=== PATIENT | male | born 1960 | race Two or more races ===

== ENCOUNTER 2017-06-14 12:35 | Emergency (ER) | payer BC, OTHER ==
[2017-06-14 13:00] VITALS: BP 152/87
== END 2017-06-14 13:16 | disposition home or self-care (01) ==
LOC: ER 12:35
DX: G51.0 Bell's palsy (principal)

== ENCOUNTER 2022-01-04 10:07 | Inpatient (IN) | payer BC, MEDICAID, OTHER ==
[~2022-01-04] VITALS: Ht 180.3 cm; Wt 129.8 kg
[2022-01-04 10:45] LABS: Basophils # (auto) 0 10 ^3/uL (0-0.2); Basophils % (auto) 0.5 % (0.0-2.0); Eosinophils # (auto) 0.1 10 ^3/uL (0-0.8); Eosinophils % (auto) 1.5 % (0.0-7.0); Hematocrit 44.1 % (41.0-53.0); Hemoglobin 14.9 g/dL (13.5-17.5); Lymphocytes % (auto) 13.8 % (10.0-50.0); Mean Corpuscular Hemoglobin 29.2 pg (28.0-32.0); Mean Corpuscular Hgb Conc. 33.8 g/dL (32.0-36.0); Mean Corpuscular Volume 86.4 fL (80.0-100.0); Monocytes # (auto) 0.6 10 ^3/uL (0-1.3); Monocytes % (auto) 7.6 % (0.0-12.0); Neutrophils # (auto) 5.6 10 ^3/uL (1.6-8.6); Neutrophils % (auto) 76.6 % (37.0-80.0); Nucleated Red Blood Cells % 0.1 %; Red Blood Cells 5.11 10^6/uL (4.5-5.90); Red Cell Distribution Width 14.4 % (11.8-14.3); White Blood Cell 7.3 10^3/uL (4.4-10.8)
[2022-01-04 12:49] LABS: Alanine Aminotransferase 53 U/L (16-61); Albumin 2.7 g/dL (3.4-5.0); Alkaline Phosphatase 84 U/L (45-117); Anion Gap 4 (5-15); Aspartate Aminotransferase 29 U/L (15-37); BUN/Creatinine Ratio 21.4; Bilirubin, Total 0.4 mg/dL (0.2-1.0); Blood Urea Nitrogen 15 mg/dL (7-18); Calcium 8.6 mg/dL (8.5-10.1); Carbon Dioxide 28 mmol/L (21-32); Chloride 104 mmol/L (98-107); GFR African American 146 mL/min; GFR Non-African American 121 mL/min; Glucose 194 mg/dL (74-106); Potassium 4.1 mmol/L (3.5-5.1); Sodium 136 mmol/L (136-145); Total Protein 6.2 g/dL (6.4-8.2)
[2022-01-04] MEDS ORDERED: IOHEXOL 350 MG/ML 100ML IJ ONE (12:59)
[2022-01-04] MEDS ORDERED: MORPHINE SULFATE INJECTION 2 MG/ML SYRG IV PRN ×2 (13:15→16:45)
[2022-01-04] MEDS ORDERED: NITROGLYCERIN 0.4 MG SL TAB SL PRN (13:15)
[2022-01-04] MEDS ORDERED: HEPARIN SODIUM (PORCINE) 5000 UNITS/ML 1ML VIAL IV ONE (14:00)
[2022-01-04 16:27] LABS: Partial Thromboplastin Time 26.6 sec (23.6-33.0)
[2022-01-04] MEDS ORDERED: ONDANSETRON HCL 4 MG/2 ML VIAL IV PRN (16:45)
[2022-01-04] MEDS ORDERED: LACTULOSE 20Gm/30ML SOLN PO PRN (16:45)
[2022-01-04] MEDS ORDERED: LORazepam 0.5 MG TAB PO PRN (16:45)
[2022-01-04] MEDS ORDERED: DEXTROSE (50%) 50ML SYRG IV PRN (16:45)
[2022-01-04] MEDS ORDERED: HYDROcodone-ACET 5/325MG TAB PO PRN (16:45)
[2022-01-04] MEDS ORDERED: IPRATROPIUM BROM 0.5 MG/2.5ML INH SOL NEB ONE (16:45)
[2022-01-04] MEDS ORDERED: hydrALAZINE HCL 20 MG/ML VL IV PRN (16:45)
[2022-01-04] MEDS ORDERED: HYDROcodone-ACET 5/325MG TAB PO ONE (16:45)
[2022-01-04] MEDS ORDERED: FAMOTIDINE (10MG/ML) 2ML VL IV ONE (16:45)
[2022-01-04] MEDS ORDERED: ACETAMINOPHEN 500 MG TAB PO PRN (16:45)
[2022-01-04] MEDS ORDERED: DOCUSATE SOD 100 MG CAP PO PRN (16:45)
[2022-01-04] MEDS ORDERED: REMDESIVIR PER PHARMACY 0 ML IV SCH (16:45)
[2022-01-04] MEDS ORDERED: IPRATROPIUM BROM 0.5 MG/2.5ML INH SOL NEB PRN (17:00)
[2022-01-04] MEDS ORDERED: ISOSORBIDE MONONITRATE 20 MG TAB PO ONE (17:00)
[2022-01-04] MEDS: HEPARIN DRIP/D5W 100UNITS/ML 250 ML IV SCH (17:01)
[2022-01-04] MEDS: SODIUM CHLORIDE 0.9% 1,000 ML IV SCH (17:17)
[2022-01-04] MEDS: ACCU-CHEK COMFORT CURVE STRIP VI SCH ×2 (17:24→22:13)
[2022-01-04] MEDS: FUROSEMIDE 20 MG/2 ML VIAL IV SCH (17:24)
[2022-01-04] MEDS: InsuLIN REG 1unit/0.01ml Soln (100units/ml) SC SCH ×2 (17:50→22:14)
[2022-01-04] MEDS ORDERED: IPRATROPIUM BROM 0.5 MG/2.5ML INH SOL NEB SCH (18:00)
[2022-01-04 18:30] VITALS: BP 122/64
[2022-01-04 19:08] LABS: Magnesium 2.2 mg/dL (1.6-2.6); Phosphorus 3.4 mg/dL (2.5-4.90)
[2022-01-04] MEDS: ALBUTEROL SULF HFA 90MCG INH 200DOSE IN PRN (19:30)
[2022-01-04] MEDS: BUDESONIDE (INHALATION) 180 MCG IH IN SCH (19:30)
[2022-01-04] MEDS ORDERED: REMDESIVIR 200 MG in NS 210ml LOADING DOSE ADULT IV ONE (20:00)
[2022-01-04 21:10] LABS: INR 1.09 (0.9-1.15); Partial Thromboplastin Time 38.1 sec (23.6-33.0)
[2022-01-04] MEDS: DOXYCYCLINE 100MG/250ML 250 ML IV SCH (22:12)
[2022-01-04] MEDS: ISOSORBIDE MONONITRATE 20 MG TAB PO SCH (22:13)
[2022-01-04] MEDS: POTASSIUM CHL 20 Meq TABLET PO SCH (22:13)
[2022-01-04] MEDS: ATORVASTATIN 20 MG TAB PO SCH (22:13)
[2022-01-04 23:42] LABS: INR 1.05 (0.9-1.15); Partial Thromboplastin Time 45.2 sec (23.6-33.0)
[2022-01-05] VITALS (42 sets, daily range): BP systolic 95–176; BP diastolic 55–84
[2022-01-05] MEDS: HEPARIN DRIP/D5W 100UNITS/ML 250 ML IV SCH ×2 (04:15→16:45)
[2022-01-05] MEDS: ACCU-CHEK COMFORT CURVE STRIP VI SCH ×4 (05:53→21:36)
[2022-01-05] MEDS: FUROSEMIDE 20 MG/2 ML VIAL IV SCH ×2 (05:53→17:22)
[2022-01-05] MEDS: SODIUM CHLORIDE 0.9% 1,000 ML IV SCH (05:54)
[2022-01-05] MEDS: InsuLIN REG 1unit/0.01ml Soln (100units/ml) SC SCH ×4 (05:55→21:39)
[2022-01-05] MEDS: ALBUTEROL SULF HFA 90MCG INH 200DOSE IN PRN ×2 (06:11→22:30)
[2022-01-05] MEDS: BUDESONIDE (INHALATION) 180 MCG IH IN SCH ×2 (06:11→22:30)
[2022-01-05 06:53] LABS: Basophils # (auto) 0 10 ^3/uL (0-0.2); Basophils % (auto) 0.4 % (0.0-2.0); Eosinophils # (auto) 0.1 10 ^3/uL (0-0.8); Hematocrit 38.7 % (41.0-53.0); Hemoglobin 13.1 g/dL (13.5-17.5); Lymphocytes # (auto) 1.2 10 ^3/uL (0.4-5.4); Lymphocytes % (auto) 18.6 % (10.0-50.0); Mean Corpuscular Hemoglobin 29.3 pg (28.0-32.0); Mean Corpuscular Hgb Conc. 33.9 g/dL (32.0-36.0); Mean Corpuscular Volume 86.2 fL (80.0-100.0); Monocytes # (auto) 0.6 10 ^3/uL (0-1.3); Monocytes % (auto) 8.9 % (0.0-12.0); Neutrophils # (auto) 4.5 10 ^3/uL (1.6-8.6); Neutrophils % (auto) 70.1 % (37.0-80.0); Nucleated Red Blood Cells % 0.1 %; Red Blood Cells 4.48 10^6/uL (4.5-5.90); Red Cell Distribution Width 14.2 % (11.8-14.3); White Blood Cell 6.4 10^3/uL (4.4-10.8)
[2022-01-05 06:59] LABS: INR 1.06 (0.9-1.15); Partial Thromboplastin Time 60.4 sec (23.6-33.0)
[2022-01-05 07:00] LABS: Potassium 4.3 mmol/L (3.5-5.1)
[2022-01-05 07:15] LABS: Albumin 2.4 g/dL (3.4-5.0); Calcium 8.6 mg/dL (8.5-10.1); Magnesium 2.4 mg/dL (1.6-2.6)
[2022-01-05 07:22] LABS: Bilirubin, Total 0.4 mg/dL (0.2-1.0); Phosphorus 3.1 mg/dL (2.5-4.90); Total Protein 5.8 g/dL (6.4-8.2)
[2022-01-05 08:02] LABS: Thyroid Stimulating Hormone 2.04 uIU/mL (0.358-3.74)
[2022-01-05] MEDS ORDERED: ENAL10TA12 PO (09:42)
[2022-01-05] MEDS: ASCORBIC ACID 1,000 MG TAB PO SCH (10:00)
[2022-01-05] MEDS: DexAMETHasone SOD PHOS 10MG/1ML VIAL INJ IV SCH (10:00)
[2022-01-05] MEDS: ZINC SULFATE 220mg CAP or TAB PO SCH (10:00)
[2022-01-05] MEDS: ASPirin 81 mg TAB PO SCH (10:00)
[2022-01-05] MEDS: CHOLECALCIFEROL (VITD3) 2,000 UNIT CAP/TAB PO SCH (10:00)
[2022-01-05] MEDS: FAMOTIDINE (10MG/ML) 2ML VL IV SCH (10:00)
[2022-01-05] MEDS: POTASSIUM CHL 20 Meq TABLET PO SCH ×2 (10:00→21:35)
[2022-01-05] MEDS: DOXYCYCLINE 100MG/250ML 250 ML IV SCH ×2 (10:00→21:35)
[2022-01-05] MEDS: ISOSORBIDE MONONITRATE 20 MG TAB PO SCH ×2 (10:00→21:35)
[2022-01-05 14:21] LABS: INR 1.06 (0.9-1.15); Partial Thromboplastin Time 66.6 sec (23.6-33.0)
[2022-01-05] MEDS: REMDESIVIR 100mg 100 MG in SODIUM CHL 0.9% 230 ML IV SCH (15:04)
[2022-01-05] MEDS: ATORVASTATIN 20 MG TAB PO SCH (21:36)
[2022-01-05 22:21] LABS: Albumin 2.4 g/dL (3.4-5.0); BUN/Creatinine Ratio 23.4; Calcium 8.5 mg/dL (8.5-10.1); Potassium 4.8 mmol/L (3.5-5.1)
[2022-01-05 22:23] LABS: Bilirubin, Total 0.4 mg/dL (0.2-1.0); Total Protein 5.8 g/dL (6.4-8.2)
[2022-01-05 22:32] LABS: INR 1.08 (0.9-1.15)
[2022-01-05 22:48] LABS: Partial Thromboplastin Time 74.9 sec (23.6-33.0)
[2022-01-06] VITALS (34 sets, daily range): BP systolic 106–167; BP diastolic 57–89
[2022-01-06] MEDS: SODIUM CHLORIDE 0.9% 1,000 ML IV SCH ×2 (02:00→18:45)
[2022-01-06] MEDS: FUROSEMIDE 20 MG/2 ML VIAL IV SCH ×2 (05:04→17:36)
[2022-01-06] MEDS: HEPARIN DRIP/D5W 100UNITS/ML 250 ML IV SCH ×2 (05:04→09:09)
[2022-01-06 05:39] LABS: Basophils # (auto) 0 10 ^3/uL (0-0.2); Basophils % (auto) 0.4 % (0.0-2.0); Eosinophils # (auto) 0 10 ^3/uL (0-0.8); Hematocrit 39.1 % (41.0-53.0); Hemoglobin 13.4 g/dL (13.5-17.5); Lymphocytes # (auto) 0.7 10 ^3/uL (0.4-5.4); Mean Corpuscular Hemoglobin 29.3 pg (28.0-32.0); Mean Corpuscular Hgb Conc. 34.2 g/dL (32.0-36.0); Mean Corpuscular Volume 85.7 fL (80.0-100.0); Monocytes # (auto) 0.4 10 ^3/uL (0-1.3); Monocytes % (auto) 6.4 % (0.0-12.0); Neutrophils # (auto) 5.5 10 ^3/uL (1.6-8.6); Neutrophils % (auto) 83.2 % (37.0-80.0); Red Blood Cells 4.56 10^6/uL (4.5-5.90); Red Cell Distribution Width 13.9 % (11.8-14.3); White Blood Cell 6.6 10^3/uL (4.4-10.8)
[2022-01-06 06:03] LABS: Albumin 2.4 g/dL (3.4-5.0); BUN/Creatinine Ratio 24.2; Calcium 8.7 mg/dL (8.5-10.1); Potassium 4.4 mmol/L (3.5-5.1)
[2022-01-06 06:06] LABS: Bilirubin, Total 0.4 mg/dL (0.2-1.0)
[2022-01-06] MEDS: InsuLIN REG 1unit/0.01ml Soln (100units/ml) SC SCH ×4 (06:23→22:36)
[2022-01-06] MEDS: ACCU-CHEK COMFORT CURVE STRIP VI SCH ×4 (06:23→22:34)
[2022-01-06] MEDS: ALBUTEROL SULF HFA 90MCG INH 200DOSE IN PRN ×2 (08:24→18:49)
[2022-01-06] MEDS: BUDESONIDE (INHALATION) 180 MCG IH IN SCH ×2 (08:24→18:49)
[2022-01-06] MEDS: DOXYCYCLINE 100MG/250ML 250 ML IV SCH ×2 (09:04→22:33)
[2022-01-06] MEDS: DexAMETHasone SOD PHOS 10MG/1ML VIAL INJ IV SCH (09:05)
[2022-01-06] MEDS: FAMOTIDINE (10MG/ML) 2ML VL IV SCH (09:05)
[2022-01-06] MEDS ORDERED: VANCOMYCIN PER PHARMACY 0 MG IV SCH (09:45)
[2022-01-06] MEDS: ISOSORBIDE MONONITRATE 20 MG TAB PO SCH ×2 (10:00→22:33)
[2022-01-06] MEDS: ASCORBIC ACID 1,000 MG TAB PO SCH (10:00)
[2022-01-06] MEDS: CHOLECALCIFEROL (VITD3) 2,000 UNIT CAP/TAB PO SCH (10:00)
[2022-01-06] MEDS: POTASSIUM CHL 20 Meq TABLET PO SCH ×2 (10:00→22:00)
[2022-01-06] MEDS: ZINC SULFATE 220mg CAP or TAB PO SCH (10:00)
[2022-01-06] MEDS: ASPirin 81 mg TAB PO SCH (10:00)
[2022-01-06] MEDS ORDERED: VANCOMYCIN 1GM/250ML 250 ML IV ONE (10:30)
[2022-01-06] MEDS: hydrALAZINE HCL 20 MG/ML VL IV PRN (11:21)
[2022-01-06] MEDS ORDERED: fentaNYL CITRATE 100 MCG/2 ML VL ONE (11:54)
[2022-01-06] MEDS ORDERED: MIDAZOLAM HCL 2MG/2ML 2ml VIAL (1mg/ml) ONE (11:54)
[2022-01-06] MEDS ORDERED: LIDOCAINE 2%HCL (LOCAL ANESTH.) INJ 20ML MDV ONE (12:23)
[2022-01-06] MEDS ORDERED: ANGIOMAX 250 MG VIAL IV ONE ×2 (12:56→13:20)
[2022-01-06] MEDS ORDERED: SODIUM CHL 0.9% 50 ML ONE (12:56)
[2022-01-06] MEDS ORDERED: SODIUM CHL 0.9% 100 ML ONE (13:20)
[2022-01-06] MEDS ORDERED: IODIXANOL 320MG/ML 100ML BTL IV ONE ×2 (13:41→14:33)
[2022-01-06] MEDS ORDERED: IOHEXOL 350 MG/ML 100ML IJ ONE (15:11)
[2022-01-06] MEDS: REMDESIVIR 100mg 100 MG in SODIUM CHL 0.9% 230 ML IV SCH (16:50)
[2022-01-06] MEDS ORDERED: AMIODARONE HCL 150 MG in D5W 5% 100 ML IV ONE (17:00)
[2022-01-06] MEDS ORDERED: AMIODARONE 450mg/250ml AE 250 ML IV SCH (17:15)
[2022-01-06] MEDS: VANCOMYCIN 1GM/250ML 250 ML IV SCH (17:29)
[2022-01-06 21:30] LABS: INR 1.24 (0.9-1.15); Partial Thromboplastin Time 56.8 sec (23.6-33.0)
[2022-01-06] MEDS: ATORVASTATIN 20 MG TAB PO SCH (22:34)
[2022-01-06] MEDS: AMIODARONE 450mg/250ml AE 250 ML IV SCH (23:20)
[2022-01-07] VITALS (41 sets, daily range): BP systolic 114–153; BP diastolic 58–100
[2022-01-07] MEDS: VANCOMYCIN 1GM/250ML 250 ML IV SCH ×4 (01:19→23:37)
[2022-01-07] MEDS: HEPARIN DRIP/D5W 100UNITS/ML 250 ML IV SCH ×2 (05:04→16:58)
[2022-01-07 05:38] LABS: Albumin 2.3 g/dL (3.4-5.0); Calcium 8.3 mg/dL (8.5-10.1); Potassium 4.4 mmol/L (3.5-5.1)
[2022-01-07 05:40] LABS: BUN/Creatinine Ratio 24.3
[2022-01-07 05:53] LABS: Bilirubin, Total 0.3 mg/dL (0.2-1.0); Total Protein 5.4 g/dL (6.4-8.2)
[2022-01-07] MEDS: FUROSEMIDE 20 MG/2 ML VIAL IV SCH ×2 (06:10→17:25)
[2022-01-07] MEDS: ACCU-CHEK COMFORT CURVE STRIP VI SCH ×4 (06:10→21:28)
[2022-01-07] MEDS: InsuLIN REG 1unit/0.01ml Soln (100units/ml) SC SCH ×4 (06:11→21:28)
[2022-01-07] MEDS: BUDESONIDE (INHALATION) 180 MCG IH IN SCH ×2 (07:45→10:00)
[2022-01-07] MEDS: DexAMETHasone SOD PHOS 10MG/1ML VIAL INJ IV SCH (09:31)
[2022-01-07] MEDS: ASCORBIC ACID 1,000 MG TAB PO SCH (09:32)
[2022-01-07] MEDS: ASPirin 81 mg TAB PO SCH (09:32)
[2022-01-07] MEDS: FAMOTIDINE (10MG/ML) 2ML VL IV SCH (09:32)
[2022-01-07] MEDS: CHOLECALCIFEROL (VITD3) 2,000 UNIT CAP/TAB PO SCH (09:32)
[2022-01-07] MEDS: DOXYCYCLINE 100MG/250ML 250 ML IV SCH ×2 (09:54→21:31)
[2022-01-07] MEDS: ZINC SULFATE 220mg CAP or TAB PO SCH (10:00)
[2022-01-07] MEDS: ISOSORBIDE MONONITRATE 20 MG TAB PO SCH ×2 (10:00→21:27)
[2022-01-07] MEDS: POTASSIUM CHL 20 Meq TABLET PO SCH ×2 (10:00→21:28)
[2022-01-07] MEDS: SODIUM CHLORIDE 0.9% 1,000 ML IV SCH (11:25)
[2022-01-07] MEDS: AMIODARONE 450mg/250ml AE 250 ML IV SCH (12:26)
[2022-01-07] MEDS: REMDESIVIR 100mg 100 MG in SODIUM CHL 0.9% 230 ML IV SCH (14:44)
[2022-01-07] MEDS: APIXABAN 5 MG TAB PO SCH (17:25)
[2022-01-07] MEDS: ATORVASTATIN 20 MG TAB PO SCH (21:28)
[2022-01-07] MEDS: ALBUTEROL SULF HFA 90MCG INH 200DOSE IN PRN (22:33)
[2022-01-08] VITALS (12 sets, daily range): BP systolic 114–162; BP diastolic 59–122
[2022-01-08] MEDS: AMIODARONE 450mg/250ml AE 250 ML IV SCH (05:15)
[2022-01-08] MEDS: SODIUM CHLORIDE 0.9% 1,000 ML IV SCH ×2 (05:44→20:58)
[2022-01-08 05:49] LABS: Potassium 4.4 mmol/L (3.5-5.1)
[2022-01-08 05:55] LABS: Albumin 2.3 g/dL (3.4-5.0); BUN/Creatinine Ratio 26.6; Calcium 8.8 mg/dL (8.5-10.1)
[2022-01-08 06:03] LABS: Bilirubin, Total 0.2 mg/dL (0.2-1.0); Total Protein 5.4 g/dL (6.4-8.2)
[2022-01-08] MEDS: APIXABAN 5 MG TAB PO SCH ×2 (06:23→16:41)
[2022-01-08] MEDS: FUROSEMIDE 20 MG/2 ML VIAL IV SCH ×2 (06:25→17:56)
[2022-01-08] MEDS: ACCU-CHEK COMFORT CURVE STRIP VI SCH ×4 (06:33→22:14)
[2022-01-08] MEDS: VANCOMYCIN 1GM/250ML 250 ML IV SCH ×3 (06:33→20:58)
[2022-01-08] MEDS: InsuLIN REG 1unit/0.01ml Soln (100units/ml) SC SCH ×4 (06:34→22:15)
[2022-01-08] MEDS: DOXYCYCLINE 100MG/250ML 250 ML IV SCH ×2 (09:51→22:13)
[2022-01-08] MEDS: ZINC SULFATE 220mg CAP or TAB PO SCH (09:54)
[2022-01-08] MEDS: ASCORBIC ACID 1,000 MG TAB PO SCH (09:54)
[2022-01-08] MEDS: CHOLECALCIFEROL (VITD3) 2,000 UNIT CAP/TAB PO SCH (09:54)
[2022-01-08] MEDS: ASPirin 81 mg TAB PO SCH (09:54)
[2022-01-08] MEDS: ISOSORBIDE MONONITRATE 20 MG TAB PO SCH ×2 (09:55→22:13)
[2022-01-08] MEDS: POTASSIUM CHL 20 Meq TABLET PO SCH ×2 (09:55→22:14)
[2022-01-08] MEDS: DexAMETHasone SOD PHOS 10MG/1ML VIAL INJ IV SCH (09:56)
[2022-01-08] MEDS: FAMOTIDINE (10MG/ML) 2ML VL IV SCH (09:56)
[2022-01-08] MEDS ORDERED: APIXABAN 5 MG TAB PO SCH ×2 (10:00)
[2022-01-08] MEDS: BUDESONIDE (INHALATION) 180 MCG IH IN SCH ×2 (10:20→22:00)
[2022-01-08] MEDS: hydrALAZINE HCL 20 MG/ML VL IV PRN (13:58)
[2022-01-08] MEDS: REMDESIVIR 100mg 100 MG in SODIUM CHL 0.9% 230 ML IV SCH (15:40)
[2022-01-08] MEDS: ATORVASTATIN 20 MG TAB PO SCH (22:14)
[2022-01-09] MEDS: VANCOMYCIN 1GM/250ML 250 ML IV SCH ×3 (04:04→17:36)
[2022-01-09 05:00] VITALS: BP 128/71
[2022-01-09] MEDS: APIXABAN 5 MG TAB PO SCH ×2 (05:25→17:35)
[2022-01-09] MEDS: FUROSEMIDE 20 MG/2 ML VIAL IV SCH ×2 (05:58→17:36)
[2022-01-09] MEDS: ACCU-CHEK COMFORT CURVE STRIP VI SCH ×4 (06:39→21:59)
[2022-01-09] MEDS: InsuLIN REG 1unit/0.01ml Soln (100units/ml) SC SCH ×4 (06:41→21:59)
[2022-01-09 09:00] VITALS: BP 146/87
[2022-01-09] MEDS: FAMOTIDINE (10MG/ML) 2ML VL IV SCH (09:45)
[2022-01-09] MEDS: DexAMETHasone SOD PHOS 10MG/1ML VIAL INJ IV SCH (09:45)
[2022-01-09] MEDS: DOXYCYCLINE 100MG/250ML 250 ML IV SCH (09:45)
[2022-01-09] MEDS: ALBUTEROL SULF HFA 90MCG INH 200DOSE IN PRN ×2 (09:46→19:03)
[2022-01-09] MEDS: ISOSORBIDE MONONITRATE 20 MG TAB PO SCH ×2 (09:46→21:58)
[2022-01-09] MEDS: ASPirin 81 mg TAB PO SCH (09:46)
[2022-01-09] MEDS: BUDESONIDE (INHALATION) 180 MCG IH IN SCH ×2 (09:46→19:02)
[2022-01-09] MEDS: ZINC SULFATE 220mg CAP or TAB PO SCH (09:46)
[2022-01-09] MEDS: POTASSIUM CHL 20 Meq TABLET PO SCH ×2 (09:47→21:58)
[2022-01-09] MEDS: CHOLECALCIFEROL (VITD3) 2,000 UNIT CAP/TAB PO SCH (09:47)
[2022-01-09] MEDS: ASCORBIC ACID 1,000 MG TAB PO SCH (09:47)
[2022-01-09] MEDS: AMIODARONE 450mg/250ml AE 250 ML IV SCH ×2 (11:15→11:48)
[2022-01-09 13:00] VITALS: BP 142/71
[2022-01-09] MEDS: SODIUM CHLORIDE 0.9% 1,000 ML IV SCH (14:35)
[2022-01-09 16:55] VITALS: BP 151/72
[2022-01-09 19:02] VITALS: BP 113/91
[2022-01-09] MEDS: ATORVASTATIN 20 MG TAB PO SCH (21:59)
[2022-01-09 22:00] VITALS: BP 110/64
[2022-01-10] MEDS: VANCOMYCIN 1GM/250ML 250 ML IV SCH ×5 (00:55→22:21)
[2022-01-10] MEDS: AMIODARONE 450mg/250ml AE 250 ML IV SCH (02:15)
[2022-01-10 05:00] VITALS: BP 125/71
[2022-01-10] MEDS: APIXABAN 5 MG TAB PO SCH ×2 (05:09→17:34)
[2022-01-10] MEDS: FUROSEMIDE 20 MG/2 ML VIAL IV SCH ×2 (06:04→17:35)
[2022-01-10 06:12] LABS: Basophils # (auto) 0 10 ^3/uL (0-0.2); Basophils % (auto) 0.4 % (0.0-2.0); Eosinophils # (auto) 0 10 ^3/uL (0-0.8); Eosinophils % (auto) 0.4 % (0.0-7.0); Hematocrit 37.2 % (41.0-53.0); Hemoglobin 12.8 g/dL (13.5-17.5); Lymphocytes % (auto) 10.7 % (10.0-50.0); Mean Corpuscular Hemoglobin 29.8 pg (28.0-32.0); Mean Corpuscular Hgb Conc. 34.3 g/dL (32.0-36.0); Mean Corpuscular Volume 86.9 fL (80.0-100.0); Monocytes # (auto) 0.6 10 ^3/uL (0-1.3); Monocytes % (auto) 6.7 % (0.0-12.0); Neutrophils # (auto) 7.7 10 ^3/uL (1.6-8.6); Neutrophils % (auto) 81.8 % (37.0-80.0); Nucleated Red Blood Cells % 0.2 %; Red Blood Cells 4.28 10^6/uL (4.5-5.90); Red Cell Distribution Width 14.7 % (11.8-14.3); White Blood Cell 9.4 10^3/uL (4.4-10.8)
[2022-01-10 06:19] LABS: Potassium 4.5 mmol/L (3.5-5.1)
[2022-01-10 06:24] LABS: Albumin 2.7 g/dL (3.4-5.0); BUN/Creatinine Ratio 25.9; Bilirubin, Total 0.6 mg/dL (0.2-1.0); Calcium 8.6 mg/dL (8.5-10.1)
[2022-01-10] MEDS: ACCU-CHEK COMFORT CURVE STRIP VI SCH ×5 (06:40→22:23)
[2022-01-10] MEDS: InsuLIN REG 1unit/0.01ml Soln (100units/ml) SC SCH ×3 (06:41→17:56)
[2022-01-10] MEDS: SODIUM CHLORIDE 0.9% 1,000 ML IV SCH ×2 (07:09→22:45)
[2022-01-10] MEDS: ALBUTEROL SULF HFA 90MCG INH 200DOSE IN PRN (07:45)
[2022-01-10 08:35] VITALS: BP 158/75
[2022-01-10] MEDS: ZINC SULFATE 220mg CAP or TAB PO SCH (09:54)
[2022-01-10] MEDS: DexAMETHasone SOD PHOS 10MG/1ML VIAL INJ IV SCH (09:54)
[2022-01-10] MEDS: ASPirin 81 mg TAB PO SCH (09:54)
[2022-01-10] MEDS: FAMOTIDINE (10MG/ML) 2ML VL IV SCH (09:54)
[2022-01-10] MEDS: POTASSIUM CHL 20 Meq TABLET PO SCH ×2 (09:55→22:20)
[2022-01-10] MEDS: ASCORBIC ACID 1,000 MG TAB PO SCH (09:55)
[2022-01-10] MEDS: ISOSORBIDE MONONITRATE 20 MG TAB PO SCH ×2 (09:55→22:19)
[2022-01-10] MEDS: CHOLECALCIFEROL (VITD3) 2,000 UNIT CAP/TAB PO SCH (09:55)
[2022-01-10] MEDS: INSULIN LANTUS (GLARGINE) 1 /0.01ml (100units/ml) SC SCH ×2 (10:16→22:23)
[2022-01-10 13:00] VITALS: BP 136/73
[2022-01-10] MEDS ORDERED: DEXTROSE (50%) 50ML SYRG IV PRN ×2 (17:45)
[2022-01-10 22:00] VITALS: BP 109/69
[2022-01-10] MEDS ORDERED: InsuLIN REG 1unit/0.01ml Soln (100units/ml) SC SCH (22:00)
[2022-01-10] MEDS ORDERED: ACCU-CHEK COMFORT CURVE STRIP VI SCH (22:00)
[2022-01-10] MEDS: BUDESONIDE (INHALATION) 180 MCG IH IN SCH (22:00)
[2022-01-10] MEDS: ATORVASTATIN 20 MG TAB PO SCH (22:20)
[2022-01-11 02:42] VITALS: BP 109/69
[2022-01-11 05:00] VITALS: BP 124/67
[2022-01-11] MEDS: VANCOMYCIN 1GM/250ML 250 ML IV SCH (05:00)
[2022-01-11] MEDS: APIXABAN 5 MG TAB PO SCH ×2 (05:41→17:32)
[2022-01-11] MEDS: FUROSEMIDE 20 MG/2 ML VIAL IV SCH (05:41)
[2022-01-11] MEDS: InsuLIN REG 1unit/0.01ml Soln (100units/ml) SC SCH ×4 (06:47→23:14)
[2022-01-11] MEDS: ACCU-CHEK COMFORT CURVE STRIP VI SCH ×4 (06:47→23:12)
[2022-01-11] MEDS ORDERED: InsuLIN REG 1unit/0.01ml Soln (100units/ml) SC SCH (07:00)
[2022-01-11] MEDS: BUDESONIDE (INHALATION) 180 MCG IH IN SCH ×2 (08:01→19:35)
[2022-01-11 08:26] VITALS: BP 140/79
[2022-01-11] MEDS: POTASSIUM CHL 20 Meq TABLET PO SCH (10:12)
[2022-01-11] MEDS: ZINC SULFATE 220mg CAP or TAB PO SCH (10:12)
[2022-01-11] MEDS: ASPirin 81 mg TAB PO SCH (10:12)
[2022-01-11] MEDS: FAMOTIDINE (10MG/ML) 2ML VL IV SCH (10:12)
[2022-01-11] MEDS: DexAMETHasone SOD PHOS 10MG/1ML VIAL INJ IV SCH (10:12)
[2022-01-11] MEDS: ASCORBIC ACID 1,000 MG TAB PO SCH (10:13)
[2022-01-11] MEDS: CHOLECALCIFEROL (VITD3) 2,000 UNIT CAP/TAB PO SCH (10:13)
[2022-01-11] MEDS: ISOSORBIDE MONONITRATE 20 MG TAB PO SCH (10:14)
[2022-01-11] MEDS: INSULIN LANTUS (GLARGINE) 1 /0.01ml (100units/ml) SC SCH ×2 (11:02→23:14)
[2022-01-11 12:56] VITALS: BP 135/75
[2022-01-11] MEDS ORDERED: DEXTROSE (50%) 50ML SYRG IV PRN (14:30)
[2022-01-11 16:52] VITALS: BP 117/74
[2022-01-11] MEDS: ALBUTEROL SULF HFA 90MCG INH 200DOSE IN PRN (19:35)
[2022-01-11 21:46] VITALS: BP 122/69
[2022-01-11] MEDS: ATORVASTATIN 20 MG TAB PO SCH (22:09)
[2022-01-11] MEDS: DOXYCYCLINE 100 MG TAB/CAP PO SCH (22:10)
[2022-01-12 05:00] VITALS: BP 152/72
[2022-01-12] MEDS: ACCU-CHEK COMFORT CURVE STRIP VI SCH ×3 (05:07→17:58)
[2022-01-12] MEDS: APIXABAN 5 MG TAB PO SCH ×2 (05:18→17:58)
[2022-01-12] MEDS: InsuLIN REG 1unit/0.01ml Soln (100units/ml) SC SCH ×3 (05:21→18:01)
[2022-01-12 05:26] LABS: Hematocrit 38.1 % (41.0-53.0); Hemoglobin 13.2 g/dL (13.5-17.5)
[2022-01-12 05:43] LABS: BUN/Creatinine Ratio 28.8; Calcium 8.6 mg/dL (8.5-10.1); Magnesium 2.3 mg/dL (1.6-2.6); Potassium 4.2 mmol/L (3.5-5.1)
[2022-01-12 09:40] VITALS: BP 140/75
[2022-01-12] MEDS ORDERED: ENALAPRIL MALEATE 10 MG TAB PO SCH (10:00)
[2022-01-12] MEDS: ASPirin 81 mg TAB PO SCH (10:23)
[2022-01-12] MEDS: FAMOTIDINE (10MG/ML) 2ML VL IV SCH (10:23)
[2022-01-12] MEDS: ZINC SULFATE 220mg CAP or TAB PO SCH (10:24)
[2022-01-12] MEDS: DOXYCYCLINE 100 MG TAB/CAP PO SCH ×2 (10:25→21:58)
[2022-01-12] MEDS: DexAMETHasone 4 MG TAB PO SCH (10:25)
[2022-01-12] MEDS: CHOLECALCIFEROL (VITD3) 2,000 UNIT CAP/TAB PO SCH (10:26)
[2022-01-12] MEDS: ASCORBIC ACID 1,000 MG TAB PO SCH (10:26)
[2022-01-12 17:38] VITALS: BP 92/77
[2022-01-12] MEDS: BUDESONIDE (INHALATION) 180 MCG IH IN SCH (19:21)
[2022-01-12] MEDS: ALBUTEROL SULF HFA 90MCG INH 200DOSE IN PRN (19:23)
[2022-01-12] MEDS: AMIODARONE HCL 200 MG TAB PO SCH (21:58)
[2022-01-12] MEDS: ATORVASTATIN 20 MG TAB PO SCH (21:58)
[2022-01-12] MEDS: INSULIN LANTUS (GLARGINE) 1 /0.01ml (100units/ml) SC SCH (21:59)
[2022-01-12 22:00] VITALS: BP 128/71
[2022-01-13] MEDS: ACCU-CHEK COMFORT CURVE STRIP VI SCH ×3 (00:06→12:50)
[2022-01-13] MEDS: InsuLIN REG 1unit/0.01ml Soln (100units/ml) SC SCH ×3 (00:07→12:50)
[2022-01-13 05:00] VITALS: BP 126/76
[2022-01-13] MEDS: APIXABAN 5 MG TAB PO SCH (05:23)
[2022-01-13] MEDS: ALBUTEROL SULF HFA 90MCG INH 200DOSE IN PRN ×2 (07:04→07:07)
[2022-01-13] MEDS: BUDESONIDE (INHALATION) 180 MCG IH IN SCH (07:07)
[2022-01-13 08:00] VITALS: BP 117/68
[2022-01-13 09:00] VITALS: BP 117/68
[2022-01-13] MEDS ORDERED: METOPROLOL SUCCINATE XL 50 MG TAB PO SCH (10:00)
[2022-01-13] MEDS ORDERED: ENALAPRIL MALEATE 2.5 MG TAB PO SCH (10:00)
[2022-01-13] MEDS: FAMOTIDINE (10MG/ML) 2ML VL IV SCH (10:30)
[2022-01-13] MEDS: ASPirin 81 mg TAB PO SCH (10:30)
[2022-01-13] MEDS: ZINC SULFATE 220mg CAP or TAB PO SCH (10:30)
[2022-01-13] MEDS: DexAMETHasone 4 MG TAB PO SCH (10:31)
[2022-01-13] MEDS: AMIODARONE HCL 200 MG TAB PO SCH (10:31)
[2022-01-13] MEDS: ASCORBIC ACID 1,000 MG TAB PO SCH (10:32)
[2022-01-13] MEDS: DOXYCYCLINE 100 MG TAB/CAP PO SCH (10:32)
[2022-01-13] MEDS: CHOLECALCIFEROL (VITD3) 2,000 UNIT CAP/TAB PO SCH (10:33)
[2022-01-13] MEDS ORDERED: METF-372 PO (11:27)
[2022-01-13] MEDS ORDERED: ASCO500T11 PO (11:27)
[2022-01-13] MEDS ORDERED: ATOR20TA PO (11:27)
[2022-01-13] MEDS ORDERED: METO25TA36 PO (11:27)
[2022-01-13] MEDS ORDERED: AMIO200T33 PO (11:27)
[2022-01-13] MEDS ORDERED: FAMO20TA10 PO (11:27)
[2022-01-13] MEDS ORDERED: DEX4T PO (11:27)
[2022-01-13] MEDS ORDERED: CHOL20007 PO (11:27)
[2022-01-13 13:00] VITALS: BP 129/43
[2022-01-13 13:09] VITALS: BP 137/77
[2022-01-14] MEDS ORDERED: APIXABAN 5 MG TAB PO SCH (17:00)
== END 2022-01-13 14:45 | disposition home or self-care (01) | DRG 137 ==
LOC: ER 10:07 → TELE 13:15 → DOU IN ICU 01-05 02:58 → TELE 01-05 11:16 → DOU IN ICU 01-05 11:18 → EAST 01-08 17:40 → TELE-EAST 01-08 17:58
PROVIDERS: ADMIT Hospitalist; ATTEND Internal Medicine
PROC: XW033E5 Introduction of Remdesivir Anti-infective into Peripheral Vein, Percutaneous Approach, New Technology Group 5 (ICD-10-PCS; 2022-01-04)
PROC: 02CR3ZZ Extirpation of Matter from Left Pulmonary Artery, Percutaneous Approach (ICD-10-PCS; principal; 2022-01-06)
PROC: 02CQ3ZZ Extirpation of Matter from Right Pulmonary Artery, Percutaneous Approach (ICD-10-PCS; 2022-01-06)
PROC: B31T1ZZ Fluoroscopy of Left Pulmonary Artery using Low Osmolar Contrast (ICD-10-PCS; 2022-01-06)
PROC: B31S1ZZ Fluoroscopy of Right Pulmonary Artery using Low Osmolar Contrast (ICD-10-PCS; 2022-01-06)
PROC: B34SZZZ Ultrasonography of Right Pulmonary Artery (ICD-10-PCS; 2022-01-06)
PROC: B34TZZZ Ultrasonography of Left Pulmonary Artery (ICD-10-PCS; 2022-01-06)
DX: U07.1 COVID-19 (principal); J96.01 Acute respiratory failure with hypoxia; J12.82 Pneumonia due to coronavirus disease 2019; I50.33 Acute on chronic diastolic (congestive) heart failure; I26.94 Multiple subsegmental thrombotic pulmonary emboli without acute cor pulmonale; I27.20 Pulmonary hypertension, unspecified; U09.9 Post COVID-19 condition, unspecified; I48.0 Paroxysmal atrial fibrillation; I21.A1 Myocardial infarction type 2; D89.839 Cytokine release syndrome, grade unspecified; E66.01 Morbid (severe) obesity due to excess calories; E78.5 Hyperlipidemia, unspecified; E55.9 Vitamin D deficiency, unspecified; E11.9 Type 2 diabetes mellitus without complications; I11.0 Hypertensive heart disease with heart failure; R00.1 Bradycardia, unspecified; Z68.39 Body mass index [BMI] 39.0-39.9, adult; Z79.01 Long term (current) use of anticoagulants; Z79.4 Long term (current) use of insulin
CPT/HCPCS: 36415; 36600; 37187; 71045; 71275; 75743; 76942; 80048; 80053; 80061; 80202; 82306; 82565; 82728; 82805; 82962; 83036; 83605; 83615; 83735; 83880; 84100; 84443; 84484; 85014; 85018; 85025; 85379; 85610; 85730; 86141; 86850; 86900; 86901; 87040; 87081; 93005; 93306; 93970; 94640; 96361; 96365; 96376; 97116; 97163; 97530; 99152; 99153; 99291; C1751; G0378; J1100; J1815; J2250; J3490; J7060; Q9967

== ENCOUNTER 2022-01-25 11:08 | Inpatient (IN) | payer MEDICAID ==
[~2022-01-25] VITALS: Ht 180.3 cm; Wt 132.0 kg
[~2022-01-25 11:08] MED LIST: AMIO200T33 PO; ASCO500T11 PO; ATOR20TA PO; CHOL20007 PO; DEX4T PO; ENAL10TA12 PO; FAMO20TA10 PO; METF-372 PO; METO25TA36 PO
[2022-01-25] MEDS ORDERED: PANTOPRAZOLE 40 MG/10 ML VIAL INJ IV ONE (11:45)
[2022-01-25] MEDS ORDERED: IOHEXOL 300 MG/ML 100ML BOTTLE IJ ONE (12:15)
[2022-01-25 12:19] LABS: Basophils # (auto) 0 10 ^3/uL (0-0.2); Basophils % (auto) 0.8 % (0.0-2.0); Eosinophils # (auto) 0.1 10 ^3/uL (0-0.8); Eosinophils % (auto) 2.3 % (0.0-7.0); Hematocrit 38.1 % (41.0-53.0); Hemoglobin 12.7 g/dL (13.5-17.5); Lymphocytes # (auto) 0.8 10 ^3/uL (0.4-5.4); Lymphocytes % (auto) 12.9 % (10.0-50.0); Mean Corpuscular Hemoglobin 29.1 pg (28.0-32.0); Mean Corpuscular Hgb Conc. 33.5 g/dL (32.0-36.0); Mean Corpuscular Volume 87.1 fL (80.0-100.0); Monocytes # (auto) 0.5 10 ^3/uL (0-1.3); Monocytes % (auto) 8.7 % (0.0-12.0); Neutrophils # (auto) 4.5 10 ^3/uL (1.6-8.6); Neutrophils % (auto) 75.3 % (37.0-80.0); Red Blood Cells 4.37 10^6/uL (4.5-5.90); Red Cell Distribution Width 15.5 % (11.8-14.3)
[2022-01-25 12:33] LABS: INR 1.03 (0.9-1.15); Partial Thromboplastin Time 29.1 sec (23.6-33.0)
[2022-01-25 12:43] LABS: Albumin 2.3 g/dL (3.4-5.0); BUN/Creatinine Ratio 21.8; Calcium 8.6 mg/dL (8.5-10.1); Potassium 4.6 mmol/L (3.5-5.1)
[2022-01-25 12:48] LABS: Bilirubin, Total 0.4 mg/dL (0.2-1.0); Total Protein 6.2 g/dL (6.4-8.2)
[2022-01-25] MEDS ORDERED: MORPHINE SULFATE INJECTION 2 MG/ML SYRG IV PRN ×2 (16:45→19:15)
[2022-01-25] MEDS ORDERED: NITROGLYCERIN 0.4 MG SL TAB SL PRN (16:45)
[2022-01-25] MEDS ORDERED: DEXTROSE (50%) 50ML SYRG IV PRN (16:45)
[2022-01-25] MEDS ORDERED: FUROSEMIDE 40 MG/4 ML VIAL IV ONE (16:45)
[2022-01-25] MEDS: InsuLIN REG 1unit/0.01ml Soln (100units/ml) SC SCH ×2 (17:45→21:48)
[2022-01-25] MEDS: ACCU-CHEK COMFORT CURVE STRIP VI SCH ×2 (17:49→22:00)
[2022-01-25] MEDS ORDERED: SUCRALFATE 1 GM/10 ML ORAL SUSP PO ONE (19:15)
[2022-01-25] MEDS ORDERED: LACTULOSE 20Gm/30ML SOLN PO PRN (19:15)
[2022-01-25] MEDS ORDERED: ACETAMINOPHEN 325 MG TAB PO PRN (19:15)
[2022-01-25] MEDS ORDERED: MONTELUKAST SODIUM 10 MG TAB PO ONE (19:15)
[2022-01-25] MEDS ORDERED: LORazepam 0.5 MG TAB PO PRN (19:15)
[2022-01-25] MEDS ORDERED: BUDESONIDE (INHALATION) 0.5 MG/2 ML NEB NEB ONE (19:15)
[2022-01-25] MEDS ORDERED: DOCUSATE SOD 100 MG CAP PO PRN (19:15)
[2022-01-25] MEDS ORDERED: ONDANSETRON HCL 4 MG/2 ML VIAL IV PRN (19:15)
[2022-01-25] MEDS ORDERED: HYDROcodone-ACET 5/325MG TAB PO ONE (19:15)
[2022-01-25] MEDS ORDERED: FOLIC ACID 1 MG TAB PO ONE (19:15)
[2022-01-25] MEDS ORDERED: MULTIPLE VITAMINS W/ MINERALS TAB PO ONE (19:15)
[2022-01-25] MEDS ORDERED: HYDROcodone-ACET 5/325MG TAB PO PRN (19:15)
[2022-01-25] MEDS ORDERED: FERROUS SULFATE 325mg EC TAB PO ONE (19:15)
[2022-01-25] MEDS ORDERED: IPRATROPIUM BROM 0.5 MG/2.5ML INH SOL NEB ONE (19:15)
[2022-01-25] MEDS ORDERED: hydrALAZINE HCL 20 MG/ML VL IV PRN (19:15)
[2022-01-25] MEDS ORDERED: ALBUTEROL SULF 2.5 MG/0.5ML(0.5%) NEB SOLN NEB ONE (19:15)
[2022-01-25] MEDS ORDERED: METOPROLOL SUCCINATE XL 50 MG TAB PO ONE (19:45)
[2022-01-25] MEDS ORDERED: BENAZEPRIL HCL 10 MG TAB PO ONE (19:45)
[2022-01-25] MEDS ORDERED: cefTRIAXone 1GM/50ML D5W 50 ML IV ONE (19:45)
[2022-01-25] MEDS ORDERED: metroNIDAZOLE 500MG/100ML 100 ML IV ONE (19:45)
[2022-01-25 20:00] VITALS: BP 127/74
[2022-01-25 20:28] LABS: Magnesium 1.8 mg/dL (1.6-2.6); Phosphorus 2.9 mg/dL (2.5-4.90)
[2022-01-25 20:32] LABS: INR 1.02 (0.9-1.15); Partial Thromboplastin Time 29.4 sec (23.6-33.0)
[2022-01-25] MEDS: POTASSIUM CHL 20 Meq TABLET PO SCH (21:16)
[2022-01-25] MEDS: PANTOPRAZOLE 40 MG/10 ML VIAL INJ IV SCH (21:22)
[2022-01-25 21:29] VITALS: BP 127/74
[2022-01-25] MEDS: IPRATROPIUM BROM 0.5 MG/2.5ML INH SOL NEB PRN (21:55)
[2022-01-25] MEDS ORDERED: ATORVASTATIN 20 MG TAB PO SCH (22:00)
[2022-01-25] MEDS: ACETYLCYSTEINE 10 %(100MG/ML) SOL 4ML NEB SCH (22:07)
[2022-01-26] VITALS (8 sets, daily range): BP systolic 101–127; BP diastolic 61–74
[2022-01-26] MEDS ORDERED: IPRATROPIUM BROM 0.5 MG/2.5ML INH SOL NEB SCH (02:00)
[2022-01-26] MEDS ORDERED: FUROSEMIDE 20 MG/2 ML VIAL IV SCH (06:00)
[2022-01-26] MEDS ORDERED: metroNIDAZOLE 500MG/100ML 100 ML IV SCH (06:00)
[2022-01-26] MEDS: SUCRALFATE 1 GM/10 ML ORAL SUSP PO SCH ×4 (06:29→21:24)
[2022-01-26] MEDS: ACCU-CHEK COMFORT CURVE STRIP VI SCH ×4 (06:30→21:26)
[2022-01-26] MEDS: InsuLIN REG 1unit/0.01ml Soln (100units/ml) SC SCH ×4 (06:32→21:27)
[2022-01-26 06:42] LABS: Partial Thromboplastin Time 28.5 sec (23.6-33.0)
[2022-01-26 06:45] LABS: Basophils # (auto) 0 10 ^3/uL (0-0.2); Basophils % (auto) 0.6 % (0.0-2.0); Eosinophils # (auto) 0.1 10 ^3/uL (0-0.8); Eosinophils % (auto) 2.3 % (0.0-7.0); Hematocrit 33.8 % (41.0-53.0); Hemoglobin 11.5 g/dL (13.5-17.5); Lymphocytes # (auto) 0.7 10 ^3/uL (0.4-5.4); Mean Corpuscular Hemoglobin 29.1 pg (28.0-32.0); Mean Corpuscular Hgb Conc. 33.9 g/dL (32.0-36.0); Mean Corpuscular Volume 85.8 fL (80.0-100.0); Monocytes # (auto) 0.5 10 ^3/uL (0-1.3); Monocytes % (auto) 11.2 % (0.0-12.0); Neutrophils # (auto) 3.4 10 ^3/uL (1.6-8.6); Neutrophils % (auto) 70.9 % (37.0-80.0); Nucleated Red Blood Cells % 0.2 %; Red Blood Cells 3.94 10^6/uL (4.5-5.90); Red Cell Distribution Width 15.7 % (11.8-14.3); White Blood Cell 4.8 10^3/uL (4.4-10.8)
[2022-01-26] MEDS: ALBUTEROL SULF 2.5 MG/0.5ML(0.5%) NEB SOLN NEB PRN ×2 (07:02→13:30)
[2022-01-26] MEDS: ACETYLCYSTEINE 10 %(100MG/ML) SOL 4ML NEB SCH ×2 (07:02→13:30)
[2022-01-26] MEDS: IPRATROPIUM BROM 0.5 MG/2.5ML INH SOL NEB PRN (07:03)
[2022-01-26 07:20] LABS: BUN/Creatinine Ratio 27.8; Bilirubin, Total 0.5 mg/dL (0.2-1.0); CRP High Sensitivity 12.3 mg/dL (< 0.3); Calcium 8.2 mg/dL (8.5-10.1); Magnesium 1.9 mg/dL (1.6-2.6); Phosphorus 3.3 mg/dL (2.5-4.90); Total Protein 5.6 g/dL (6.4-8.2); Uric Acid 3.8 mg/dL (3.5-7.2)
[2022-01-26] MEDS ORDERED: cefTRIAXone 1GM/50ML D5W 50 ML IV SCH (09:00)
[2022-01-26] MEDS: FOLIC ACID 1 MG TAB PO SCH (10:00)
[2022-01-26] MEDS: ENALAPRIL MALEATE 10 MG TAB PO SCH (10:00)
[2022-01-26] MEDS: CHOLECALCIFEROL (VITD3) 2,000 UNIT CAP/TAB PO SCH (10:00)
[2022-01-26] MEDS ORDERED: CHOLECALCIFEROL (VITD3) 2,000 UNIT CAP/TAB PO SCH (10:00)
[2022-01-26] MEDS ORDERED: BENAZEPRIL HCL 10 MG TAB PO SCH (10:00)
[2022-01-26] MEDS: POTASSIUM CHL 20 Meq TABLET PO SCH ×2 (10:00→21:24)
[2022-01-26] MEDS ORDERED: BUDESONIDE (INHALATION) 0.5 MG/2 ML NEB NEB SCH (10:00)
[2022-01-26] MEDS: METOPROLOL SUCCINATE XL 50 MG TAB PO SCH (10:00)
[2022-01-26] MEDS: MULTIPLE VITAMINS W/ MINERALS TAB PO SCH (10:00)
[2022-01-26] MEDS: PANTOPRAZOLE 40 MG/10 ML VIAL INJ IV SCH ×2 (10:00→21:24)
[2022-01-26] MEDS ORDERED: LACTATED RINGER'S 1,000 ML IV SCH ×2 (10:15→17:00)
[2022-01-26] MEDS: FERROUS SULFATE 325mg EC TAB PO SCH ×3 (12:00→18:00)
[2022-01-26] MEDS: INSULIN NPH Isophane (HUMAN) 1unit/0.01ml Susp(100units/ml) SC SCH (12:30)
[2022-01-26] MEDS ORDERED: AMIODARONE HCL 200 MG TAB PO ONE (12:30)
[2022-01-26] MEDS: DexAMETHasone 4 MG TAB PO SCH (14:29)
[2022-01-26] MEDS ORDERED: INSULIN NPH Isophane (HUMAN) 1unit/0.01ml Susp(100units/ml) SC SCH (17:30)
[2022-01-26 19:19] LABS: Basophils # (auto) 0 10 ^3/uL (0-0.2); Basophils % (auto) 0.5 % (0.0-2.0); Eosinophils # (auto) 0.1 10 ^3/uL (0-0.8); Eosinophils % (auto) 0.8 % (0.0-7.0); Hematocrit 33.7 % (41.0-53.0); Hemoglobin 11.4 g/dL (13.5-17.5); Lymphocytes # (auto) 0.5 10 ^3/uL (0.4-5.4); Lymphocytes % (auto) 6.8 % (10.0-50.0); Mean Corpuscular Hgb Conc. 33.8 g/dL (32.0-36.0); Mean Corpuscular Volume 85.8 fL (80.0-100.0); Monocytes # (auto) 0.5 10 ^3/uL (0-1.3); Monocytes % (auto) 7.5 % (0.0-12.0); Neutrophils # (auto) 5.8 10 ^3/uL (1.6-8.6); Neutrophils % (auto) 84.4 % (37.0-80.0); Nucleated Red Blood Cells % 0.1 %; Red Blood Cells 3.92 10^6/uL (4.5-5.90); Red Cell Distribution Width 15.5 % (11.8-14.3); White Blood Cell 6.9 10^3/uL (4.4-10.8)
[2022-01-26] MEDS: ATORVASTATIN 20 MG TAB PO SCH (21:25)
[2022-01-26] MEDS: MONTELUKAST SODIUM 10 MG TAB PO SCH (21:25)
[2022-01-26] MEDS: AMIODARONE HCL 200 MG TAB PO SCH (21:26)
[2022-01-26] MEDS ORDERED: AMIODARONE HCL 200 MG TAB PO SCH (22:00)
[2022-01-26] MEDS ORDERED: ASCORBIC ACID 500 MG TAB PO SCH (22:00)
[2022-01-26 23:07] LABS: Basophils # (auto) 0 10 ^3/uL (0-0.2); Basophils % (auto) 0.4 % (0.0-2.0); Eosinophils # (auto) 0 10 ^3/uL (0-0.8); Eosinophils % (auto) 0.6 % (0.0-7.0); Hemoglobin 11.2 g/dL (13.5-17.5); Lymphocytes # (auto) 0.4 10 ^3/uL (0.4-5.4); Lymphocytes % (auto) 6.3 % (10.0-50.0); Mean Corpuscular Hemoglobin 29.4 pg (28.0-32.0); Mean Corpuscular Volume 86.6 fL (80.0-100.0); Monocytes # (auto) 0.4 10 ^3/uL (0-1.3); Monocytes % (auto) 5.6 % (0.0-12.0); Neutrophils % (auto) 87.1 % (37.0-80.0); Nucleated Red Blood Cells % 0.1 %; Red Blood Cells 3.81 10^6/uL (4.5-5.90); White Blood Cell 6.9 10^3/uL (4.4-10.8)
[2022-01-27] VITALS (9 sets, daily range): BP systolic 106–123; BP diastolic 57–78
[2022-01-27 05:52] LABS: Basophils # (auto) 0 10 ^3/uL (0-0.2); Basophils % (auto) 0.3 % (0.0-2.0); Eosinophils # (auto) 0 10 ^3/uL (0-0.8); Eosinophils % (auto) 0.2 % (0.0-7.0); Hematocrit 33.3 % (41.0-53.0); Hemoglobin 11.5 g/dL (13.5-17.5); Lymphocytes # (auto) 0.5 10 ^3/uL (0.4-5.4); Lymphocytes % (auto) 8.2 % (10.0-50.0); Mean Corpuscular Hemoglobin 29.8 pg (28.0-32.0); Mean Corpuscular Hgb Conc. 34.6 g/dL (32.0-36.0); Monocytes # (auto) 0.4 10 ^3/uL (0-1.3); Monocytes % (auto) 5.5 % (0.0-12.0); Neutrophils # (auto) 5.5 10 ^3/uL (1.6-8.6); Neutrophils % (auto) 85.8 % (37.0-80.0); Red Blood Cells 3.87 10^6/uL (4.5-5.90); White Blood Cell 6.4 10^3/uL (4.4-10.8)
[2022-01-27 06:11] LABS: Potassium 4.5 mmol/L (3.5-5.1)
[2022-01-27 06:13] LABS: Calcium 8.2 mg/dL (8.5-10.1)
[2022-01-27] MEDS: ACCU-CHEK COMFORT CURVE STRIP VI SCH ×4 (06:14→21:40)
[2022-01-27] MEDS: InsuLIN REG 1unit/0.01ml Soln (100units/ml) SC SCH ×4 (06:15→21:45)
[2022-01-27] MEDS: SUCRALFATE 1 GM/10 ML ORAL SUSP PO SCH ×4 (06:57→21:38)
[2022-01-27 07:04] LABS: Amphetamine Screen, Urine NEGATIVE (NEGATIVE); Barbiturate Scree,Urine NEGATIVE (NEGATIVE); Benzodiazephine Screen, Urine NEGATIVE (NEGATIVE); Cannabinoid Screen, Urine NEGATIVE (NEGATIVE); Cocaine Screen, Urine NEGATIVE (NEGATIVE); Opiate Scree,Urine POSITIVE (NEGATIVE); Phencyclidine Screen, Urine NEGATIVE (NEGATIVE)
[2022-01-27] MEDS: INSULIN NPH Isophane (HUMAN) 1unit/0.01ml Susp(100units/ml) SC SCH (08:00)
[2022-01-27] MEDS: FERROUS SULFATE 325mg EC TAB PO SCH ×3 (08:00→18:00)
[2022-01-27] MEDS ORDERED: INSULIN NPH Isophane (HUMAN) 1unit/0.01ml Susp(100units/ml) SC SCH ×3 (09:07→17:30)
[2022-01-27] MEDS: METOPROLOL SUCCINATE XL 50 MG TAB PO SCH (10:00)
[2022-01-27] MEDS ORDERED: ENALAPRIL MALEATE 10 MG TAB PO SCH (10:00)
[2022-01-27] MEDS ORDERED: PATIENTS OWN MEDICATION (Metoprolol Succinate (Toprol Xl) 1 TAB) PO SCH (10:00)
[2022-01-27] MEDS: PANTOPRAZOLE 40 MG/10 ML VIAL INJ IV SCH ×2 (10:00→21:38)
[2022-01-27] MEDS ORDERED: DexAMETHasone 4 MG TAB PO SCH (10:00)
[2022-01-27] MEDS ORDERED: CHOLECALCIFEROL PO SCH (10:00)
[2022-01-27] MEDS: APIXABAN 5 MG TAB PO SCH ×2 (11:45→21:39)
[2022-01-27] MEDS: AMIODARONE HCL 200 MG TAB PO SCH ×2 (11:46→21:38)
[2022-01-27] MEDS: POTASSIUM CHL 20 Meq TABLET PO SCH ×2 (11:46→21:39)
[2022-01-27] MEDS: ENALAPRIL MALEATE 10 MG TAB PO SCH (11:49)
[2022-01-27] MEDS: FOLIC ACID 1 MG TAB PO SCH (11:50)
[2022-01-27] MEDS: MULTIPLE VITAMINS W/ MINERALS TAB PO SCH (11:50)
[2022-01-27] MEDS: CHOLECALCIFEROL (VITD3) 2,000 UNIT CAP/TAB PO SCH (11:50)
[2022-01-27] MEDS: DexAMETHasone 4 MG TAB PO SCH (12:00)
[2022-01-27] MEDS ORDERED: INSULIN NPH Isophane (HUMAN) 1unit/0.01ml Susp(100units/ml) SC ONE (12:15)
[2022-01-27] MEDS: MONTELUKAST SODIUM 10 MG TAB PO SCH (21:39)
[2022-01-27] MEDS: ATORVASTATIN 20 MG TAB PO SCH (21:39)
[2022-01-28 05:00] VITALS: BP 100/52
[2022-01-28 06:02] LABS: Basophils # (auto) 0 10 ^3/uL (0-0.2); Basophils % (auto) 0.2 % (0.0-2.0); Eosinophils # (auto) 0 10 ^3/uL (0-0.8); Eosinophils % (auto) 0.2 % (0.0-7.0); Hematocrit 32.6 % (41.0-53.0); Hemoglobin 11.4 g/dL (13.5-17.5); Lymphocytes # (auto) 0.7 10 ^3/uL (0.4-5.4); Lymphocytes % (auto) 8.8 % (10.0-50.0); Mean Corpuscular Hemoglobin 29.8 pg (28.0-32.0); Mean Corpuscular Volume 85.1 fL (80.0-100.0); Monocytes # (auto) 0.3 10 ^3/uL (0-1.3); Monocytes % (auto) 4.2 % (0.0-12.0); Neutrophils # (auto) 6.7 10 ^3/uL (1.6-8.6); Neutrophils % (auto) 86.6 % (37.0-80.0); Nucleated Red Blood Cells % 0.1 %; Red Blood Cells 3.83 10^6/uL (4.5-5.90); Red Cell Distribution Width 15.3 % (11.8-14.3); White Blood Cell 7.8 10^3/uL (4.4-10.8)
[2022-01-28] MEDS: SUCRALFATE 1 GM/10 ML ORAL SUSP PO SCH ×2 (06:20→11:57)
[2022-01-28] MEDS: ACCU-CHEK COMFORT CURVE STRIP VI SCH ×2 (06:20→11:58)
[2022-01-28] MEDS: InsuLIN REG 1unit/0.01ml Soln (100units/ml) SC SCH ×2 (06:21→12:24)
[2022-01-28] MEDS: INSULIN NPH Isophane (HUMAN) 1unit/0.01ml Susp(100units/ml) SC SCH (08:00)
[2022-01-28] MEDS: MULTIPLE VITAMINS W/ MINERALS TAB PO SCH (09:55)
[2022-01-28] MEDS: CHOLECALCIFEROL (VITD3) 2,000 UNIT CAP/TAB PO SCH (09:55)
[2022-01-28] MEDS: FERROUS SULFATE 325mg EC TAB PO SCH ×2 (09:55→12:24)
[2022-01-28] MEDS: ENALAPRIL MALEATE 10 MG TAB PO SCH (09:57)
[2022-01-28] MEDS: METOPROLOL SUCCINATE XL 50 MG TAB PO SCH (09:58)
[2022-01-28] MEDS: AMIODARONE HCL 200 MG TAB PO SCH (09:59)
[2022-01-28] MEDS: FOLIC ACID 1 MG TAB PO SCH (09:59)
[2022-01-28] MEDS: APIXABAN 5 MG TAB PO SCH (09:59)
[2022-01-28] MEDS: POTASSIUM CHL 20 Meq TABLET PO SCH (09:59)
[2022-01-28] MEDS: PANTOPRAZOLE 40 MG/10 ML VIAL INJ IV SCH (09:59)
[2022-01-28] MEDS: DexAMETHasone 4 MG TAB PO SCH (10:02)
[2022-01-28] MEDS ORDERED: CAL025T GT (10:05)
[2022-01-28] MEDS ORDERED: APIX5TAB PO (10:07)
[2022-01-28] MEDS ORDERED: POTA-220 PO (11:57)
[2022-01-28] MEDS ORDERED: GLIP-218 PO (11:57)
[2022-01-28 13:00] VITALS: BP 125/71
[2022-01-28 13:30] LABS: Hepatitis A Ab IgM Negative
[2022-01-28 14:33] LABS: Hepatitis B Core IgM Negative
[2022-01-28 14:44] LABS: Hepatitis C Antibody Negative (Negative)
[2022-01-28 16:54] VITALS: BP 135/69
[2022-01-29] MEDS ORDERED: Pro-Stat SF 30ml Vanilla PO SCH (10:00)
== END 2022-01-28 17:16 | disposition home or self-care (01) | DRG 253 ==
LOC: ER 11:08 → TELE 16:32 → TELE-WESTW 17:59
PROVIDERS: ADMIT Hospitalist; ATTEND Hospitalist
DX: K92.2 Gastrointestinal hemorrhage, unspecified (principal); I26.99 Other pulmonary embolism without acute cor pulmonale; J96.11 Chronic respiratory failure with hypoxia; E46 Unspecified protein-calorie malnutrition; C78.6 Secondary malignant neoplasm of retroperitoneum and peritoneum; K74.60 Unspecified cirrhosis of liver; I11.0 Hypertensive heart disease with heart failure; I48.20 Chronic atrial fibrillation, unspecified; Z68.41 Body mass index [BMI] 40.0-44.9, adult; K52.9 Noninfective gastroenteritis and colitis, unspecified; E66.01 Morbid (severe) obesity due to excess calories; E78.5 Hyperlipidemia, unspecified; Z20.822 Contact with and (suspected) exposure to COVID-19; E11.65 Type 2 diabetes mellitus with hyperglycemia; E55.9 Vitamin D deficiency, unspecified; Z91.19 Patient's noncompliance with other medical treatment and regimen; Z79.01 Long term (current) use of anticoagulants; Z86.711 Personal history of pulmonary embolism; Z87.01 Personal history of pneumonia (recurrent); Z86.718 Personal history of other venous thrombosis and embolism
CPT/HCPCS: 36415; 36600; 74177; 76705; 80048; 80053; 80061; 80074; 80307; 82105; 82270; 82378; 82550; 82728; 82805; 82962; 83615; 83690; 83735; 83880; 84100; 84443; 84484; 84550; 85025; 85379; 85610; 85652; 85730; 86141; 86301; 86850; 86900; 86901; 87040; 87070; 87077; 87081; 87086; 87186; 87205; 93005; 94640; 96374; 96375; C9113; G0378; J0696; J1815; J3490